=== PATIENT | female | born 1955 | race American Indian/Alaskan Native ===

== ENCOUNTER 2021-04-27 17:40 | Emergency (ER) | payer MEDICARE ==
[2021-04-27] MEDS ORDERED: hydrALAZINE 25 MG TAB PO ONE (20:31)
--- NOTE | 2021-04-27 20:31 | Emergency Department Report ---
ED General Adult HPI - General Chief complaint: High BP Stated complaint: HYPERTENSION Source: patient, EMS Mode of arrival: Wheelchair Limitations: No Limitations - History of Present Illness Initial comments: Patient is a 66-year-old -[place] female with no past medical history presents to the ED via EMS due to elevated blood pressure that has been intermittent and persistent for the last 2 days. Patient states that she was initially evaluated at an urgent care clinic for bilateral nontraumatic knee pain and during that visit, vital signs revealed that her blood pressure was significantly elevated. Patient states that she was then transferred to the ED for evaluation due to elevated blood pressure. Patient states that she has never been diagnosed with hypertension and that she does not take any medicine for any other medical conditions. Patient denies headache, dizziness, syncope, chest pain, shortness of breath, neck pain, back pain, numbness and tingling or weakness of upper and lower extremities bilaterally, change in vision, cough or palpitations. MD Complaint: Elevated Blood pressure -: Sudden, days(s) (2) Radiation: non-radiation Severity scale (0 -10): 0 Consistency: constant Improves with: none Worsens with: none Associated Symptoms: denies other symptoms. denies: confusion, chest pain, cough, diaphoresis, fever/chills, headaches, loss of appetite, malaise, nausea/vomiting, rash, seizure, shortness of breath, syncope, weakness Treatments Prior to Arrival: none - Related Data Previous Rx's Medication Instructions Recorded Last Taken Type Lisinopril/Hydrochlorothiazide 1 tab PO QDAY #30 tab 04/27/21 Unknown Rx [Zestoretic 20-12.5 mg] Allergies Allergy/AdvReac Type Severity Reaction Status Date / Time No Known Allergies Allergy Verified 04/27/21 17:59 ED Review of Systems ROS: Stated complaint: HYPERTENSION Other details as noted in HPI Constitutional: other (Elevated blood pressure). denies: chills, fever Eyes: denies: eye pain, eye discharge, vision change ENT: denies: ear pain, throat pain Respiratory: denies: cough, shortness of breath, SOB with exertion, wheezing Cardiovascular: denies: chest pain, palpitations, syncope, paroxysmal nocturnal dyspnea Endocrine: no symptoms reported Gastrointestinal: denies: abdominal pain, nausea, vomiting, diarrhea Genitourinary: denies: urgency, dysuria, discharge Musculoskeletal: denies: back pain, joint swelling, arthralgia Skin: denies: rash, lesions Neurological: denies: headache, weakness, paresthesias Psychiatric: denies: anxiety, depression Hematological/Lymphatic: denies: easy bleeding, easy bruising ED Past Medical Hx - Past Medical History Previous Medical History?: Yes Hx Hypertension: Yes - Medications Home Medications: Home Medications Medication Instructions Recorded Confirmed Last Taken Type Lisinopril/Hydrochlorothiazide 1 tab PO QDAY #30 tab 04/27/21 Unknown Rx [Zestoretic 20-12.5 mg] ED Physical Exam - General Limitations: No Limitations, Other (Elevated blood pressure) General appearance: alert, in no apparent distress - Head Head exam: Present: atraumatic, normocephalic, normal inspection - Eye Eye exam: Present: normal appearance, PERRL, EOMI Pupils: Present: normal accommodation - ENT ENT exam: Present: normal exam, normal orophraynx, mucous membranes moist, TM's normal bilaterally, normal external ear exam - Neck Neck exam: Present: normal inspection, full ROM - Respiratory Respiratory exam: Present: normal lung sounds bilaterally. Absent: respiratory distress, wheezes, rales, rhonchi, chest wall tenderness, accessory muscle use, decreased breath sounds - Cardiovascular Cardiovascular Exam: Present: regular rate, normal rhythm, normal heart sounds. Absent: systolic murmur, diastolic murmur, rubs, gallop - GI/Abdominal GI/Abdominal exam: Present: soft, normal bowel sounds. Absent: tenderness, guarding, rebound, hyperactive bowel sounds, hypoactive bowel sounds, organomegaly - Extremities Exam Extremities exam: Present: normal inspection, full ROM, normal capillary refill - Back Exam Back exam: Present: normal inspection, full ROM. Absent: tenderness, CVA tenderness (R), CVA tenderness (L), muscle spasm, paraspinal tenderness, vertebral tenderness - Neurological Exam Neurological exam: Present: alert, oriented X3, CN II-XII intact, normal gait, reflexes normal - Psychiatric Psychiatric exam: Present: normal affect, normal mood - Skin Skin exam: Present: warm, dry, intact, normal color. Absent: rash ED Course Vital Signs 04/27/21 18:00 Temperature 98.9 F Pulse Rate 82 Respiratory 14 Rate Blood Pressure 203/102 [Left] O2 Sat by Pulse 99 Oximetry ED Medical Decision Making - Medical Decision Making This is a 66-year-old -[place] female with no past medical history presents to the ED via EMS due to elevated blood pressure that has been intermittent and persistent for the last 2 days. Patient states that she was initially evaluated at an urgent care clinic for bilateral nontraumatic knee pain and during that visit, vital signs revealed that her blood pressure was significantly elevated. Patient states that she was then transferred to the ED for evaluation due to elevated blood pressure. Patient states that she has never been diagnosed with hypertension and that she does not take any medicine for any other medical conditions. In the ED, patient is alert and oriented x3 and is not in any distress but hypertensive and afebrile. Patient has no other complaint and denies any other symptoms. Patient vital signs were repeated and still showed elevated blood pressure. Patient was therefore treated for blood pressure in the ED and discharged home on a prescription of antihypertensive medications lisinopril HCTZ 20-12.5 mg daily. Patient was advised to follow-up with her primary care physician in 7 to 10 days for reevaluation or return to the ED immediately if symptoms get worse especially if she develops symptoms such as chest pain, shortness of breath, dizziness, headache, neck pain or palpitations. - Differential Diagnosis Uncontrolled HTN; anxiety; Critical care attestation.: If time is entered above; I have spent that time in minutes in the direct care of this critically ill patient, excluding procedure time. ED Disposition Clinical Impression: Uncontrolled stage 2 hypertension Disposition: - TO HOME OR SELFCARE Is pt being admited?: No Does the pt Need Aspirin: No Condition: Stable Instructions: Hypertension (ED), Hypertension, Adult, [id number] Additional Instructions: Take medications and follow-up with your primary care physician in 7 to 10 days for reevaluation. Return to the ED immediately if your symptoms get worse especially if you develop chest pain, shortness of breath, dizziness, headache or syncope. Prescriptions: Lisinopril/Hydrochlorothiazide [Zestoretic 20-12.5 mg] 1 tab PO QDAY #30 tab Referrals: SUZAN APODACA MD [Staff Physician] - 3-5 Days [facility] [Provider Group] - 3-5 Days Time of Disposition: 20:28 Print Language: INDONESIAN
[2021-04-27 20:44] VITALS: BP 187/90
== END 2021-04-27 20:45 | disposition home or self-care (01) ==
LOC: ED 17:40
DX: I10 Essential (primary) hypertension (principal); Z79.899 Other long term (current) drug therapy
CPT/HCPCS: 99283